=== PATIENT | male | born 1985 | race Two or more races ===

== ENCOUNTER 2019-06-28 21:29 | Emergency (ER) | payer MEDICAID ==
[~2019-06-28] VITALS: Ht 188 cm; Wt 145.1 kg
[2019-06-28 21:29] VITALS: BP 144/84
--- NOTE | 2019-06-28 21:29 | NUR ---
ED Nurse Note: pt brought in by 66 from home for elevated blood glucose level. blood sugar at triage reads critically high. pt is alert x4. ambulatory. PT reports he has been compalianty with his dmabetic medication ( metformin, Insulin)
--- NOTE | 2019-06-28 21:34 | Emergency Room Report ---
History of Present Illness General Chief Complaint: Hyperglycemia Source: Patient, EMS (Atilio Blanton MD) Present Illness HPI Disclaimer: Please note that this report is being documented using [employer] technology. This can lead to erroneous entry secondary to incorrect interpretation by the dictating instrument. HPI: 34-year-old male with a history of diabetes, hypertension, hyperlipidemia, depression presents for evaluation of elevated blood sugar. Patient states his meter has been reading "high" intermittently for the past 3 days. This typically means it is greater than 500. He reports just feeling fatigued, irritated and body wide cramping. Denies vomiting, diarrhea, fever, chills, cough. Reports intermittent headaches. Last took insulin several hours ago. Also taking metformin. States he was admitted to the ICU last year with sugars greater than 1000. Unsure whether or not he has been in DKA in the past. PMH: Diabetes, hypertension, hyperlipidemia, obesity, depression PSH: Reviewed Allergies: None reported Social Hx: Denies drug or alcohol abuse (Atilio Blanton MD) Allergies: Coded Allergies: No Known Allergies (Unverified , 06/28/19) COVID-19 Screening Contact w/high risk pt: No Recent Travel to affected area: No Experienced COVID-19 symptoms?: No (Atilio Blanton MD) Nursing Documentation-PMH Past Medical History: No History, Except For Hx Hypertension: Yes Hx Diabetes: Yes (Atilio Blanton MD) Review of Systems All Other Systems: negative except mentioned in HPI (Aitlio Blanton MD) Physical Exam Vital Signs Date Time Temp Pulse Resp B/P (MAP) Pulse Ox O2 Delivery O2 Flow Rate FiO2 06/28/19 21:22 99 148/81 (103) 98 Room Air General: Awake and alert, no acute distress HEENT: NC/AT. EOMI. Cardiovascular: RRR. S1 and S2 normal. No murmur appreciated Resp: Normal work of breathing. No cough, wheezing or crackles appreciated Abdomen: Obese abdomen. Abdomen is soft, nondistended. Nontender Skin: Intact. No abrasions, laceration or rash over the exposed skin MSK: Normal tone and bulk. Moving all extremities. No obvious deformity. Neuro: Awake and alert. Mentating appropriately. (Atilio Blanton MD) Medical Decision Making Diagnostic Impression: Primary Impression: Hyperglycemia due to type 1 diabetes mellitus Additional Impressions: Noncompliance with diabetes treatment Morbid obesity with BMI of 40.0-44.9, adult ER Course This a 34-year-old male presenting for evaluation of fatigue, muscle cramps and blood sugars greater than 500. Concern for DKA, HHS, electrolyte abnormality, severe dehydration. Will start IV fluids, draw broad labs including blood gas and acetone level. Patient blood sugars are reading greater than 500 still. Will give insulin. Anticipate admission (Atilio Blanton MD) ER Course Patient signed out to me. Patient presents with hyperglycemia. He said he is taking his insulin but not watching his diet. When I asked him why sugar so high, he said he is been drinking Coca-Cola. No evidence of DKA. Will hydrate him up and control his glucose here and discharge home. (Jez Alvarez MD) EKG Diagnostic Results EKG Time: 21:37 Rate: tachycardiac ST Segments: no acute changes Other Impression Sinus tachycardia, slight right axis deviation. Normal intervals. PVC noted (Atilio Blanton MD) Rhythm Strip Diag. Results Rhythm Strip Time: 21:37 EP Interpretation: yes Rate: 100s Rhythm: other - PVC (Atilio Blanton MD) Last Vital Signs Date Time Temp Pulse Resp B/P (MAP) Pulse Ox O2 Delivery O2 Flow Rate FiO2 06/28/19 21:22 99 148/81 (103) 98 Room Air (Atilio Blanton MD) Status: improved (Jez Alvarez MD) Disposition: HOME, SELF-CARE Condition: Stable Additional Instructions: Take your insulin. You have to watch her diet. No more Coca-Cola or sugary drinks. Follow-up with your doctor in 7 days. Return if symptoms worsen. Atilio Blanton MD Jun 28, 2019 21:34 Jez Alvarez MD Jun 28, 2019 22:32
--- NOTE | 2019-06-28 21:35 | NUR ---
ED Nurse Note: blood sample sent down to lab
[2019-06-28] MEDS ORDERED: ATORVASTATIN CA10 MG ORAL (21:42)
[2019-06-28] MEDS ORDERED: METFORMIN HCL1000 M1 ORAL (21:42)
[2019-06-28] MEDS ORDERED: LISINOPRIL10 MG ORAL (21:42)
[2019-06-28] MEDS ORDERED: LANTUS SOL100 UNIT/1 SUBQ (21:43)
[2019-06-28] MEDS ORDERED: CYMBALTA30 MG ORAL (21:43)
[2019-06-28 21:55] LABS: ANION GAP 10 mmol/L (5-15); BLOOD UREA NITROGEN 22 mg/dL (7-18); CALCIUM 9.4 MG/DL (8.5-10.1); CARBON DIOXIDE 28 MMOL/L (21-32); CHLORIDE 89 MMOL/L (98-107); CREATININE 1.5 MG/DL (0.55-1.30); POTASSIUM 4.6 MMOL/L (3.5-5.1); SODIUM 127 MMOL/L (136-145)
[2019-06-28 21:57] LABS: ALANINE AMINOTRANSFERASE 47 U/L (12-78); ALBUMIN 4.5 G/DL (3.4-5.0); ALBUMIN/GLOBULIN RATIO 1.1 (1.0-2.7); ALKALINE PHOSPHATASE 146 U/L (46-116); ASPARTATE AMINO TRANSFERASE 18 U/L (15-37); BILIRUBIN,TOTAL 0.8 MG/DL (0.2-1.0)
--- NOTE | 2019-06-28 21:58 | NUR ---
urine sample sent to lab
[2019-06-28 22:06] LABS: BASOPHILS % (AUTO) 1.1 % (0.0-2.0); EOSINOPHILS % (AUTO) 1.6 % (0.0-3.0); HEMATOCRIT 54.4 % (42.0-52.0); HEMOGLOBIN 17.6 G/DL (14.2-18.0); LYMPHOCYTES % (AUTO) 19.5 % (20.0-45.0); MEAN CORPUSCULAR VOLUME 88 FL (80-99); MONOCYTES % (AUTO) 6.5 % (1.0-10.0); NEUTROPHILS % (AUTO) 71.2 % (45.0-75.0); PLATELET COUNT 218 K/UL (150-450); RED BLOOD COUNT 6.21 M/UL (4.70-6.10); RED CELL DISTRIBUTION WIDTH 13.2 % (11.6-14.8); WHITE BLOOD COUNT 13.5 K/UL (4.8-10.8)
[2019-06-28 22:06] LABS: APPEARANCE,URINE CLEAR; BILIRUBIN, URINE NEGATIVE (NEGATIVE); COLOR,URINE PALE YELLOW; GLUCOSE, URINE (UA) 4+ (NEGATIVE); KETONES,URINE 3+ (NEGATIVE); LEUKOCYTE ESTERASE ,URINE NEGATIVE (NEGATIVE); NITRITE,URINE NEGATIVE (NEGATIVE); PH,URINE 5 (4.5-8.0); PROTEIN,URINE NEGATIVE (NEGATIVE); UROBILINOGEN,URINE NORMAL MG/DL (0.0-1.0)
[2019-06-28] MEDS ORDERED: Insulin Human Regular 100units/ml 3ml IV ONE ×2 (22:15→23:15)
[2019-06-29] VITALS: BP 139/91
[2019-06-29 00:05] VITALS: BP 139/91
--- NOTE | 2019-06-29 00:05 | NUR ---
ER DISCHARGE NOTE: Patient is cleared to be discharged per ERMD, pt is aox4, on room air, with stable vital signs. pt was given dc instructions, pt was able to verbalize understanding, pt id band and iv site removed without complications. pt is able to ambulate with steady gait. pt took all belongings.
== END 2019-06-29 00:05 | disposition home or self-care (01) ==
LOC: EDBD 21:29 → EMR 22:17
DX: E10.65 Type 1 diabetes mellitus with hyperglycemia (principal); Z91.14 Patient's other noncompliance with medication regimen; E66.01 Morbid (severe) obesity due to excess calories; Z68.41 Body mass index [BMI] 40.0-44.9, adult; E66.9 Obesity, unspecified; E78.5 Hyperlipidemia, unspecified; I10 Essential (primary) hypertension; F32.9 Major depressive disorder, single episode, unspecified; R00.0 Tachycardia, unspecified
CPT/HCPCS: 36415; 80053; 81003; 82009; 83735; 85025; 93005; 96361; 96374; 96376; J1815; J7030; Z7502; 99284